=== PATIENT | male | born 1995 | race Caucasian/White ===

== ENCOUNTER 2019-01-21 14:47 | Emergency (ER) | payer BC ==
[2019-01-21 14:55] VITALS: BP 143/78
--- NOTE | 2019-01-21 15:38 | ER Document Report ---
HPI - HPI Patient complains to provider of: Concerned about HIV exposure Time Seen by Provider: 01/21/19 15:14 Onset: This morning Quality of pain: No pain Pain Level: 0 Context: Patient reports consensual intercourse at 8 AM this morning with both receptive and insertive anal intercourse with a man without any use of condoms. Patient states that afterwards he had regrets and he is concerned that he may have been exposed to HIV. Patient states that he does not know the person he had inte rcourse with and would like to both be tested and treated for HIV. Patient states that he last had a negative HIV test in June. Patient denies any dysuria symptoms pain rectal bleeding or rash. Associated Symptoms: None Exacerbated by: Denies Relieved by: Denies Similar symptoms previously: No Recently seen / treated by doctor: No - ROS ROS below otherwise negative: Yes Systems Reviewed and Negative: Yes All other systems reviewed and negative - CONSTITUTIONAL Constitutional: DENIES: Fever - EENT EENT: DENIES: Sore Throat - GASTROINTESTINAL Gastrointestinal: DENIES: Nausea - DERM Skin Color: Normal Skin Problems: None Past Medical History - General Information source: Patient - Social History Smoking Status: Never Smoker Frequency of alcohol use: Occasional Drug Abuse: None Occupation: printer repair technician Family History: Reviewed & Not Pertinent Psychiatric Medical History: Reports: Hx Anxiety, Hx Obsessive Compulsive Disorder Surgical Hx: Negative Vertical Provider Document - CONSTITUTIONAL Agree With Documented VS: Yes Exam Limitations: No Limitations General Appearance: WD/WN, No Apparent Distress - INFECTION CONTROL TRAVEL OUTSIDE OF THE [place] IN LAST 30 DAYS: No - HEENT HEENT: Atraumatic, Normocephalic - NECK Neck: Normal Inspection, Supple - RESPIRATORY Respiratory: Breath Sounds Normal, No Respiratory Distress - CARDIOVASCULAR Cardiovascular: Regular Rate, Regular Rhythm - BACK Back: Normal Inspection - MUSCULOSKELETAL/EXTREMETIES Musculoskeletal/Extremeties: MAEW - NEURO Level of Consciousness: Awake, Alert, Appropriate Motor/Sensory: No Motor Deficit - DERM Integumentary: Warm, Dry, No Rash Course - Re-evaluation Re-evalutation: 01/21/19 15:39 Patient presents after having insertive and receptive unprotected anal intercourse this morning at 8 AM requesting HIV testing and prophylaxis for exposure to HIV. Patient is uncertain of partner status and would like to be tested and treated. Patient reports most recent HIV test was negative in June of last year. Patient is agreeable with having additional STD testing at this time. - Vital Signs Vital signs: Temp Pulse Resp BP Pulse Ox 98.2 F 97 18 143/78 H 100 01/21/19 14:52 01/21/19 14:52 01/21/19 14:52 01/21/19 14:52 01/21/19 14:52 - Laboratory Result Diagrams: 01/21/19 16:45 Laboratory results interpreted by me: 01/22/19 10:32 Labs- Entire Visit 01/21/19 01/21/19 16:40 16:45 Sodium 141.4 Potassium 4.4 Chloride 104 Carbon Dioxide 30 Anion Gap 7 BUN 21 H Creatinine 0.95 Est GFR ( Amer) > 60 Est GFR (Non-Af Amer) > 60 Glucose 93 Calcium 10.1 Total Bilirubin 0.6 Direct Bilirubin 0.1 Neonat Total Bilirubin Not Reportable Neonat Direct Bilirubin Not Reportable Neonat Indirect Bili Not Reportable AST 22 ALT 23 Alkaline Phosphatase 53 Total Protein 7.5 Albumin 5.1 H Chlamydia DNA (PCR) NOT DETECTED HIV 1&2 Antibody NEGATIVE N.gonorrhoeae DNA (PCR) NOT DETECTED Discharge - Discharge Clinical Impression: Concern about STD in male without diagnosis, concern about HIV exposure Condition: Stable Disposition: HOME, SELF-CARE Additional Instructions: Return immediately for any new or worsening symptoms Followup with your primary care provider, call tomorrow to make a followup appointment Cultures are pending, we will call if you need any different treatment Practice safe sex, always use a condom You will need additional HIV testing to confirm that you have not been exposed to the HIV virus today. Your primary doctor or health department can perform these tests for you. Prescriptions: Emtricitabine/Tenofovir [Truvada Tablet] 1 each PO DAILY #28 tablet Raltegravir Potassium [Isentress 400 mg Tablet] 400 mg PO BID #56 tablet Referrals: [facility] [NO LOCAL MD] - 01/23/19
[2019-01-21 17:22] LABS: ALANINE AMINOTRANSFERASE 23 U/L (21-72); ALBUMIN 5.1 g/dL (3.5-5.0); ALKALINE PHOSPHATASE 53 U/L (38-126); ANION GAP 7 (5-19); ASPARTATE AMINO TRANSFERASE 22 U/L (17-59); BILIRUBIN,DIRECT 0.1 mg/dL (0.0-0.4); BILIRUBIN,TOTAL 0.6 mg/dL (0.2-1.3); BLOOD UREA NITROGEN 21 mg/dL (7-20); CALCIUM 10.1 mg/dL (8.4-10.2); CARBON DIOXIDE 30 mmol/L (22-30); CHLORIDE 104 mmol/L (98-107); GLUCOSE 93 mg/dL (75-110); POTASSIUM 4.4 mmol/L (3.6-5.0); SODIUM 141.4 mmol/L (137-145); TOTAL PROTEIN 7.5 g/dL (6.3-8.2)
[2019-01-21] MEDS ORDERED: RALTEGRAVIR POTASSIUM 400 MG TABLET PO ONE (18:23)
[2019-01-21] MEDS ORDERED: EMTRICITABINE/TENOFOVIR 200-300 MG TABLET PO ONE (18:23)
[2019-01-21 18:33] LABS: CHLAM PCR NOT DETECTED (NOT DETECT); GON PCR NOT DETECTED (NOT DETECT)
[2019-01-21] MEDS ORDERED: EMTRICITABINE/TENOFOVIR 200-300 MG TAB (3 TAB/ER DISP) PO PRN (19:06)
[2019-01-21] MEDS ORDERED: RALTEGRAVIR 400 MG TAB (6 TAB/ER DISP) PO PRN (19:06)
[2019-01-23 13:37] LABS: HEPATITIS A AB IGM Negative (Negative); HEPATITIS B CORE AB IGM Negative (Negative); HEPATITS B SURFACE ANTIGEN Negative (Negative)
[2019-01-23 14:00] LABS: HEPATITIS C VIRUS ANTIBODY <0.1 s/co ratio (0.0-0.9)
== END 2019-01-21 19:17 | disposition home or self-care (01) ==
LOC: ER 14:47
DX: Z20.2 Contact with and (suspected) exposure to infections with a predominantly sexual mode of transmission (principal)
CPT/HCPCS: 36415; 80053; 80074; 86592; 86701; 87491; 87591; 99283